=== PATIENT | female | born 1955 | race Caucasian/White ===

== ENCOUNTER 2019-04-28 07:33 | Outpatient (CLI) | payer BC ==
--- NOTE | 2019-04-28 08:18 | ULT ---
Sonogram abdomen complete HISTORY: Upper abdomen pain. FINDINGS: Gallbladder is well distended. No stones or mass evident. Common duct is 0.3 cm. Liver unremarkable without focal mass or intrahepatic biliary dilatation. Mayo ical cyst of the left kidney measures up to 2.6 cm. Small right renal cyst. No hydronephrosis. The spleen and visualized portions of the abdominal aorta, IVC, and pancreas are unremarkable. IMPRESSION: No evidence of gallstones or biliary obstruction. No significant abnormalities are demons trated.
== END 2019-04-28 07:34 | disposition home or self-care (01) ==
LOC: ULT 07:33
PROVIDERS: ATTEND Internal Medicine Hematology & Oncology
DX: K82.8 Other specified diseases of gallbladder (principal)
CPT/HCPCS: 76700